=== PATIENT | female | born 1995 | race Caucasian/White ===

== ENCOUNTER 2022-08-31 12:11 | Inpatient (IN) | payer OTHER ==
[2022-08-31] MEDS ORDERED: Tranexamic Acid 1,000 MG in Sodium Chloride 0.9% 100 ML IV PRN (12:19)
[2022-08-31] MEDS ORDERED: Terbutaline 1 MG/ML SDV SUBCUT PRN (12:19)
[2022-08-31] MEDS ORDERED: Misoprostol 25 MCG (1/4 of 100 MCG) Tab VAG PRN ×2 (12:19)
[2022-08-31] MEDS ORDERED: Sodium Chloride 0.9% 10 ML Syringe FLUSH PRN (12:19)
[2022-08-31] MEDS ORDERED: Carboprost Tromethamine 250 MCG/1 ML Amp IM PRN (12:19)
[2022-08-31] MEDS ORDERED: Sodium Chloride 0.9% 20 ML SDV IV PRN (12:19)
[2022-08-31] MEDS ORDERED: Water For Irrigation,Sterile 1,000 ML Container IRR PRN (12:19)
[2022-08-31] MEDS ORDERED: Lidocaine 1% 50 ML MDV INJECT PRN (12:19)
[2022-08-31] MEDS ORDERED: Misoprostol 200 MCG Tab PO PRN (12:19)
[2022-08-31] MEDS ORDERED: Sodium Chloride 0.9% 2.5 ML Syringe FLUSH PRN (12:19)
[2022-08-31] MEDS ORDERED: Butorphanol 1 MG/ML SDV IVPUSH PRN (12:19)
[2022-08-31] MEDS ORDERED: Ondansetron 4 MG/2 ML SDV IVPUSH PRN (12:19)
[2022-08-31] MEDS ORDERED: Methylergonovine 0.2 MG/1 ML Amp IM PRN (12:19)
[2022-08-31] MEDS ORDERED: Oxytocin/0.9 % Sodium Chloride 30 UNIT/500 ML BAG IV SCH ×2 (12:30)
[2022-08-31] MEDS: Lactated Ringers 1,000 ML IV SCH ×3 (12:42→21:05)
[2022-08-31] MEDS ORDERED: ceFAZolin 2 GM in Sodium Chloride 0.9% 50 ML IV ONE (13:00)
[2022-08-31] MEDS ORDERED: Ropivacaine/PF 400 MG/200 ML PCA ONE (19:42)
[2022-08-31] MEDS ORDERED: Bupivacaine 0.5% 10 ML SDV ONE (19:42)
[2022-08-31] MEDS ORDERED: ePHEDrine 50 MG/ML SDV IVPUSH PRN ×2 (20:13)
[2022-08-31] MEDS ORDERED: Phenylephrine HCl In 0.9% NaCl 1 MG/10 ML Vial IVPUSH PRN (20:13)
[2022-08-31] MEDS ORDERED: Phenylephrine HCl In 0.9% NaCl 1 MG/10 ML Vial IVPUSH SCH (20:15)
[2022-08-31] MEDS ORDERED: Ropivacaine HCl/PF 400 MG in Premix Bag 1 BAG EPIDUR SCH (20:15)
[2022-08-31] MEDS ORDERED: ceFAZolin 1 GM in Premix Bag 1 BAG IV SCH (21:00)
[2022-08-31] MEDS ORDERED: Lanolin 100% Cream 7 GM Tube TOP PRN (22:26)
[2022-08-31] MEDS ORDERED: Acetaminophen 500 MG Tab PO PRN (22:26)
[2022-08-31] MEDS ORDERED: Ibuprofen 400 MG Tab PO PRN (22:26)
[2022-08-31] MEDS ORDERED: Bisacodyl 10 MG Supp RECTAL PRN (22:26)
[2022-08-31] MEDS ORDERED: oxyCODONE 5 MG Tab PO PRN (22:26)
[2022-09-01] MEDS: Benzocaine/Menthol 20%-0.5% Spray 78 GM Cannister TOP PRN ×2 (01:10→14:31)
[2022-09-01] MEDS: Witch Hazel Medicated Pads 40/Jar TOP PRN ×2 (01:11→14:31)
[2022-09-01] MEDS: Ibuprofen 800 MG Tab PO PRN ×3 (01:14→15:41)
[2022-09-01] MEDS: Acetaminophen 500 MG Tab PO PRN ×3 (01:14→18:14)
[2022-09-01] MEDS: Docusate Sodium 100 MG Cap PO PRN (07:46)
[2022-09-02] MEDS: Ibuprofen 800 MG Tab PO PRN ×3 (00:21→18:19)
[2022-09-02] MEDS: Docusate Sodium 100 MG Cap PO PRN (08:11)
[2022-09-02] MEDS: Acetaminophen 500 MG Tab PO PRN (12:35)
== END 2022-09-02 18:35 | disposition home or self-care (01) | DRG 806 ==
LOC: MW.OBCHECK 12:11 → MW.OB 12:13 → OBSVTOIN 22:00 → MW.OB 09-01 01:55
PROVIDERS: ADMIT Obstetrics & Gynecology; ATTEND Obstetrics & Gynecology
PROC: 10E0XZZ Delivery of Products of Conception, External Approach (ICD-10-PCS; principal; 2022-08-31)
PROC: 0UQMXZZ Repair Vulva, External Approach (ICD-10-PCS; 2022-08-31)
PROC: 3E0R3BZ Introduction of Anesthetic Agent into Spinal Canal, Percutaneous Approach (ICD-10-PCS; 2022-08-31)
PROC: 00HU33Z Insertion of Infusion Device into Spinal Canal, Percutaneous Approach (ICD-10-PCS; 2022-08-31)
PROC: 3E033VJ Introduction of Other Hormone into Peripheral Vein, Percutaneous Approach (ICD-10-PCS; 2022-08-31)
PROC: 3E0P7VZ Introduction of Hormone into Female Reproductive, Via Natural or Artificial Opening (ICD-10-PCS; 2022-08-31)
DX: O48.0 Post-term pregnancy (principal); O41.03X0 Oligohydramnios, third trimester, not applicable or unspecified; Z37.0 Single live birth; O42.02 Full-term premature rupture of membranes, onset of labor within 24 hours of rupture; O99.824 Streptococcus B carrier state complicating childbirth; O70.0 First degree perineal laceration during delivery; Z88.0 Allergy status to penicillin; Z88.2 Allergy status to sulfonamides; Z3A.40 40 weeks gestation of pregnancy
CPT/HCPCS: 36415; 51702; 59025; 59409; 82803; 84112; 85014; 85018; 85027; 86592; 86850; 86900; 86901; A9270-GY; J0595; J0690; J2590; J2795; J3490; J7050; J7120; U0002

== ENCOUNTER 2022-09-05 14:17 | Emergency (ER) | payer OTHER ==
[2022-09-05] MEDS ORDERED: Sodium Chloride 0.9% 10 ML Syringe FLUSH PRN (16:05)
[2022-09-05] MEDS ORDERED: Sodium Chloride 0.9% 2.5 ML Syringe FLUSH PRN (16:05)
[2022-09-05 17:07] LABS: POTASSIUM,K 3.9 mmol/L (3.5-5.1)
[2022-09-05 17:14] LABS: CORONAVIRUS COVID-19 NAA NEGATIVE (NEGATIVE); INFLUENZA A NAA NEGATIVE (NEGATIVE); INFLUENZA B NAA NEGATIVE (NEGATIVE)
[2022-09-05] MEDS ORDERED: Iopamidol 755 MG/ML 500 ML Multipack Bottle IVPUSH ONE (17:23)
== END 2022-09-05 18:51 | disposition home or self-care (01) ==
LOC: MW.ED 14:17
DX: O99.893 Other specified diseases and conditions complicating puerperium (principal); R07.89 Other chest pain; R06.02 Shortness of breath; Z88.0 Allergy status to penicillin; Z88.2 Allergy status to sulfonamides; Z88.8 Allergy status to other drugs, medicaments and biological substances; Z20.822 Contact with and (suspected) exposure to COVID-19
CPT/HCPCS: 0240U; 36415; 71275; 80053; 83735; 85025; 93005; 99285; J3490; Q9967

== ENCOUNTER 2024-12-09 21:41 | Inpatient (IN) | payer OTHER ==
[2024-12-10] MEDS ORDERED: Butorphanol 1 MG/ML SDV IVPUSH PRN (00:27)
[2024-12-10] MEDS ORDERED: Methylergonovine 0.2 MG/1 ML Amp IM PRN ×2 (00:27→10:24)
[2024-12-10] MEDS ORDERED: Sodium Chloride 0.9% 2.5 ML Syringe FLUSH PRN (00:27)
[2024-12-10] MEDS ORDERED: Sodium Chloride 0.9% 10 ML Syringe FLUSH PRN (00:27)
[2024-12-10] MEDS ORDERED: Lidocaine 1% 50 ML MDV INJECT PRN (00:27)
[2024-12-10] MEDS ORDERED: Water For Irrigation,Sterile 1,000 ML Container IRR PRN (00:27)
[2024-12-10] MEDS ORDERED: Sodium Chloride 0.9% 20 ML SDV IV PRN (00:27)
[2024-12-10] MEDS ORDERED: Carboprost Tromethamine 250 MCG/1 mL Vial IM PRN (00:27)
[2024-12-10] MEDS ORDERED: Misoprostol 200 MCG Tab RECTAL PRN ×2 (00:37→10:24)
[2024-12-10] MEDS ORDERED: Ondansetron 4 MG/2 ML SDV IVPUSH PRN (00:37)
[2024-12-10] MEDS ORDERED: Tranexamic Acid in NACL,ISO-OS 1,000 MG in Premix Bag 1 BAG IV PRN (00:45)
[2024-12-10 00:50] LABS: HEMATOCRIT 39.3 % (37.0-47.0); HEMOGLOBIN 13.6 g/dL (12.0-16.0); MEAN CORPUSCULAR HEMOGLOBIN 29.6 pg (28.0-32.0); MEAN CORPUSCULAR HGB CONC 34.6 g/dL (32.0-36.0); MEAN CORPUSCULAR VOLUME 85.4 fL (83.0-99.0); MEAN PLATELET VOLUME 10.9 fL (9.4-12.3); PLATELET COUNT,PLT 261 K/uL (150-400); WHITE BLOOD CELL COUNT,WBC 8.62 K/uL (3.9-11.3)
[2024-12-10] MEDS: Acetaminophen 500 MG Tab PO ONE (01:06)
[2024-12-10] MEDS: Aluminum Hydroxide/Magnesium Hydroxide/Simethicone Susp 30 ML Cup PO PRN (01:06)
[2024-12-10] MEDS ORDERED: Terbutaline 1 MG/ML SDV SUBCUT PRN (04:23)
[2024-12-10] MEDS ORDERED: Oxytocin/0.9 % Sodium Chloride 30 UNIT/500 ML BAG IV SCH (04:30)
[2024-12-10] MEDS: Lactated Ringers 1,000 ML IV SCH (08:48)
[2024-12-10] MEDS: Oxytocin/0.9 % Sodium Chloride 30 UNIT/500 ML BAG IV SCH (09:52)
[2024-12-10] MEDS ORDERED: Docusate Sodium 100 MG Cap PO PRN (10:24)
[2024-12-10] MEDS ORDERED: Acetaminophen 500 MG Tab PO PRN (10:24)
[2024-12-10 11:14] LABS: PH,UMBILICAL ARTERIAL 7.29 (7.18-7.38); PH,UMBILICAL VENOUS 7.39 (7.25-7.45)
[2024-12-10] MEDS: Ibuprofen 800 MG Tab PO PRN (12:12)
[2024-12-10] MEDS: Lanolin 100% Cream 7 GM Tube TOP PRN (12:14)
[2024-12-10] MEDS: Benzocaine/Menthol 20%-0.5% Spray 78 GM Cannister TOP PRN (12:15)
[2024-12-10] MEDS: Witch Hazel Medicated Pads 40/Jar TOP PRN (12:15)
[2024-12-11 06:06] LABS: HEMATOCRIT 40.5 % (37.0-47.0); HEMOGLOBIN 13.5 g/dL (12.0-16.0)
== END 2024-12-11 14:00 | disposition home or self-care (01) | DRG 807 ==
LOC: MW.OBCHECK 21:41 → MW.OB 21:41 → OBSVTOIN 12-10 00:28 → MW.OB 12-10 00:28 → MW.OBCHECK 12-10 00:28 → MW.OB 12-10 15:26
PROVIDERS: ADMIT Obstetrics & Gynecology; ATTEND Obstetrics & Gynecology
PROC: 10E0XZZ Delivery of Products of Conception, External Approach (ICD-10-PCS; principal; 2024-12-09)
PROC: 10907ZC Drainage of Amniotic Fluid, Therapeutic from Products of Conception, Via Natural or Artificial Opening (ICD-10-PCS; 2024-12-09)
DX: O69.81X0 Labor and delivery complicated by cord around neck, without compression, not applicable or unspecified (principal); Z37.0 Single live birth; Z3A.40 40 weeks gestation of pregnancy
CPT/HCPCS: 36415; 59025; 59409; 82803; 84112; 85014; 85018; 85027; 86592; 86850; 86900; 86901; A9270-GY; J2590; J7120